=== PATIENT | female | born 1970 | race Native Hawaiian/Other Pacific Islander ===

== ENCOUNTER 2016-04-14 09:57 | Inpatient (IN) | payer OTHER ==
[~2016-04-14] VITALS: Ht 160 cm; Wt 77.2 kg
[2016-04-14] VITALS (15 sets, daily range): BP systolic 100–198; BP diastolic 73–124; TEMP 96.5–99; Ht 160 cm; Wt 77.2 kg
[2016-04-14 04:11] LABS: PLATELET COUNT 471 K/uL (152-353)
[2016-04-14 04:20] LABS: POTASSIUM 3.4 mmol/L (3.6-5.2); SODIUM 136 mmol/L (136-145)
[2016-04-15] VITALS (9 sets, daily range): BP systolic 142–198; BP diastolic 81–110; TEMP 36.3
[2016-04-15 04:44] LABS: POTASSIUM 3.9 mmol/L (3.6-5.2); SODIUM 138 mmol/L (136-145)
[2016-04-15 05:01] LABS: PLATELET COUNT 365 K/uL (152-353)
[2016-04-16] VITALS (7 sets, daily range): BP systolic 127–190; BP diastolic 78–92; TEMP 97.9–98.7
[2016-04-16 05:17] LABS: PLATELET COUNT 437 K/uL (152-353)
[2016-04-16 05:35] LABS: POTASSIUM 3.4 mmol/L (3.6-5.2); SODIUM 130 mmol/L (136-145)
[2016-04-17 00:18] VITALS: BP 120/71; TEMP 98.4
[2016-04-17 05:00] VITALS: BP 137/88; TEMP 98.4
[2016-04-17 08:00] VITALS: BP 138/89; TEMP 97.9
== END 2016-04-17 12:42 | disposition home or self-care (01) | DRG 331 ==
LOC: OR 09:57 → MED/SURG 13:03
PROVIDERS: Emergency Medicine; ADMIT Student in an Organized Health Care Education/Training Program
PROC: 0YQ80ZZ Repair Left Femoral Region, Open Approach (ICD-10-PCS; principal; 2016-04-14)
PROC: 0DT80ZZ Resection of Small Intestine, Open Approach (ICD-10-PCS; 2016-04-14)
DX: K41.30 Unilateral femoral hernia, with obstruction, without gangrene, not specified as recurrent (principal)
CPT/HCPCS: 36415; 80048; 80053; 81000; 81025; 82150; 82948; 83690; 85027; 94760; 96372; 99284; J0330; J0690; J1100; J1170; J1644; J1885; J2001; J2250; J2270; J2405; J2704; J2710; J3010; J3490; J7120; Q9963